=== PATIENT | female | born 1955 | race African-American/Black ===

== ENCOUNTER 2017-09-03 12:13 | Inpatient (IN) | payer OTHER ==
[2017-09-03 12:33] LABS: ADD MAN DIFF? NO
[2017-09-03 12:41] LABS: BASO # 0.1 x10^3/uL (0.0-0.2); BASO % 1 % (0-3); EOS # 0.1 x10^3/uL (0.0-0.7); EOS % 1 % (0-3); LYMPH # 2.7 x10^3/uL (1.0-4.8); LYMPH % 23 % (24-48); MEAN CORPUSCULAR HEMOGLOBIN 29 pg (25-35); MEAN CORPUSCULAR HGB CONC 34 g/dL (31-37); MEAN CORPUSCULAR VOLUME 84 fL (79-100); MONO % 8 % (0-9); NEUT # 7.9 x10^3uL (1.8-7.7); NEUT % 67 % (31-73); PLATELET COUNT 294 x10^3/uL (140-400); RED BLOOD COUNT 4.89 x10^6/uL (3.50-5.40); RED CELL DISTRIBUTION WIDTH 12.7 % (11.5-14.5); WHITE BLOOD COUNT 11.8 x10^3/uL (4.0-11.0)
[2017-09-03 12:53] LABS: ALBUMIN 3.7 g/dL (3.4-5.0); ALBUMIN/GLOBULIN RATIO 0.8 (1.0-1.7); ALK PHOS 203 U/L (46-116); ALT (SGPT) 53 U/L (14-59); ANION GAP 15 (6-14); AST (SGOT) 30 U/L (15-37); BLOOD UREA NITROGEN 14 mg/dL (7-20); BUN/CREATININE RATIO 18 (6-20); CARBON DIOXIDE 24 mmol/L (21-32); CHLORIDE 98 mmol/L (98-107); CREATININE 0.8 mg/dL (0.6-1.0); GFR 87.9; GLUCOSE 161 mg/dL (70-99); LIPASE 102 U/L (73-393); SODIUM 137 mmol/L (136-145); TOTAL BILIRUBIN 2.1 mg/dL (0.2-1.0); TOTAL PROTEIN 8.1 g/dL (6.4-8.2)
[2017-09-03] MEDS: IOHEXOL 300 MG/ML 100ML VIAL. IV (14:00)
[2017-09-03] MEDS ORDERED: CONTRAST GIVEN. MC (14:00)
[2017-09-03] MEDS: ONDANSETRON PF 4 MG/2 ML VIAL. IV (14:03)
[2017-09-03] MEDS: fentaNYL PF VIAL 100 MCG/2 ML VIAL IV ×3 (14:04→16:11)
[2017-09-03] MEDS: IV NORMAL SALINE 1000ML BAG 1,000 ML IV ×2 (14:04→16:45)
[2017-09-03] MEDS ORDERED: LIDOCAINE 2% TOPICAL JELLY 5GM TUBE. TP (16:00)
[2017-09-03 16:35] LABS: BILIRUBIN,URINE NEGATIVE (NEG); CLARITY,URINE CLEAR; COLOR,URINE YELLOW; GLUCOSE,URINE NEGATIVE (NEG); NITRITE,URINE NEGATIVE (NEG); PH,URINE 5.5; PROTEIN,URINE NEGATIVE (NEG-TRACE)
[2017-09-03 16:48] LABS: BACTERIA,URINE FEW /HPF (0-FEW); HYALINE CASTS, URINE MODERATE /HPF; RBC,URINE OCC /HPF (0-2); WBC,URINE OCC /HPF (0-4)
[2017-09-03 16:49] LABS: GRANULAR CASTS,URINE OCCASIONAL /HPF
[2017-09-03] MEDS: POTASSIUM CL 40MEQ IN 0.9%NACL 1,000 ML IV (18:01)
[2017-09-03] MEDS: LIDOCAINE 2% JELLY 6ML IN APPLICATOR. MM (23:29)
[2017-09-04] MEDS ORDERED: PNEUMOC CONJ VACC 23-VALENT 0.5 ML VIAL. VAX IM (09:00)
[2017-09-04] MEDS: POTASSIUM CHLORIDE 40 MEQ in IV 1/2 NORMAL SALINE 1,000 ML IV ×2 (11:36→22:18)
[2017-09-04 15:18] LABS: C DIFF BY PCR Negative (Negative)
[2017-09-04] MEDS: PANTOPRAZOLE IV PUSH 40 MG VIAL. IVP (18:31)
[2017-09-04] MEDS: ENOXAPARIN 40 MG/0.4 ML SYRINGE. SQ ×2 (20:24→20:26)
[2017-09-05] MEDS: POTASSIUM CHLORIDE 40 MEQ in IV 1/2 NORMAL SALINE 1,000 ML IV ×3 (02:50→23:58)
[2017-09-05 04:47] LABS: HEMATOCRIT 32.1 % (36.0-47.0); HEMOGLOBIN 10.9 g/dL (12.0-15.5); MEAN CORPUSCULAR HEMOGLOBIN 29 pg (25-35); MEAN CORPUSCULAR HGB CONC 34 g/dL (31-37); MEAN CORPUSCULAR VOLUME 84 fL (79-100); PLATELET COUNT 195 x10^3/uL (140-400); RED BLOOD COUNT 3.82 x10^6/uL (3.50-5.40); RED CELL DISTRIBUTION WIDTH 12.7 % (11.5-14.5); WHITE BLOOD COUNT 5.8 x10^3/uL (4.0-11.0)
[2017-09-05 05:19] LABS: ALBUMIN 2.7 g/dL (3.4-5.0); ALBUMIN/GLOBULIN RATIO 0.8 (1.0-1.7); ALK PHOS 137 U/L (46-116); ALT (SGPT) 33 U/L (14-59); ANION GAP 10 (6-14); AST (SGOT) 27 U/L (15-37); BLOOD UREA NITROGEN 5 mg/dL (7-20); BUN/CREATININE RATIO 13 (6-20); CALCIUM 9.3 mg/dL (8.5-10.1); CARBON DIOXIDE 24 mmol/L (21-32); CHLORIDE 107 mmol/L (98-107); CREATININE 0.4 mg/dL (0.6-1.0); GFR 195.7; GLUCOSE 82 mg/dL (70-99); LIPASE 73 U/L (73-393); POTASSIUM 3.6 mmol/L (3.5-5.1); SODIUM 141 mmol/L (136-145); TOTAL PROTEIN 6.2 g/dL (6.4-8.2)
[2017-09-05 07:23] LABS: SEDIMENTATION RATE 18 (0-25)
[2017-09-05] MEDS: PANTOPRAZOLE IV PUSH 40 MG VIAL. IVP (08:57)
[2017-09-05] MEDS: IOHEXOL 240 MG/ML 50ML VIAL. PO ×3 (12:00)
[2017-09-05] MEDS ORDERED: CONTRAST GIVEN. MC (12:00)
[2017-09-05] MEDS: ENOXAPARIN 40 MG/0.4 ML SYRINGE. SQ (19:59)
[2017-09-06] MEDS: POTASSIUM CHLORIDE 40 MEQ in IV 1/2 NORMAL SALINE 1,000 ML IV ×2 (05:44→11:30)
[2017-09-06] MEDS: PANTOPRAZOLE IV PUSH 40 MG VIAL. IVP (08:56)
[2017-09-07] MEDS ORDERED: PANTOPRAZOLE 40 MG TABLET.DR. PO (07:30)
== END 2017-09-06 17:15 | disposition home or self-care (01) | DRG 390 ==
LOC: ER 12:13 → 5 SOUTH 16:18
PROC: 0D9670Z Drainage of Stomach with Drainage Device, Via Natural or Artificial Opening (ICD-10-PCS; principal; 2017-09-03)
DX: K56.609 Unspecified intestinal obstruction, unspecified as to partial versus complete obstruction (principal); K76.89 Other specified diseases of liver; E03.9 Hypothyroidism, unspecified; E78.5 Hyperlipidemia, unspecified; F17.210 Nicotine dependence, cigarettes, uncomplicated; F41.9 Anxiety disorder, unspecified; I10 Essential (primary) hypertension; Z80.0 Family history of malignant neoplasm of digestive organs; Z90.710 Acquired absence of both cervix and uterus; Z88.8 Allergy status to other drugs, medicaments and biological substances; Z82.49 Family history of ischemic heart disease and other diseases of the circulatory system; Z83.3 Family history of diabetes mellitus
CPT/HCPCS: 36415; 74018; 74022; 74177; 74250; 80053; 81001; 83690; 85025; 85027; 85651; 87324; 93005; 96361; 96365; 96375; 96376; 99285; 99285-25; 99406; C9113; J1650; J2060; J2405; J3010; J3480; J7030; Q9967

== ENCOUNTER → 2017-12-28 | Outpatient (CLI) | payer OTHER ==
[2017-09-06 15:00] VITALS: BP 115/78
[~2017-12-28] MED LIST: ATOR20TA58 PO; DILT120C80 PO; HYDR12.58 PO; HYDR50TA6 PO; LORA0.5T PO
--- NOTE | 2017-12-28 15:24 | KCIC ---
Bilateral digital screening mammograms: Reason for examination: Routine screening. 50 pound weight loss since prior exams. Comparison is made to previous studies dated 01/29/2016 and 01/25/2015. Interpretation was made with the benefit of CAD. The skin and nipples show no abnormalities. No abnormal axillary lymph nodes are seen. The breast parenchyma shows scattered fibroglandular density. (Breast density: Category B.) There are no dominant masses, suspicious calcifications or architectural distortions. Impression: No evidence of malignancy. Recommend routine screening. BI-RADS Category 1: Negative. "Our facility is accredited by the [employer] Mammography [employer]." This patient's information has been entered into a reminder system for the patient to be notified with the results of her examination and a target date for the next mammogram. Electronically signed by: Rajani Recinos MD (12/28/2017 3:20 PM) [id number]
--- NOTE | 2018-01-06 09:36 | RAD ---
I-131 thyroid therapy for hyperthyroidism, 12/28/2017: HISTORY: Hyperthyroidism The procedure for I-131 thyroid therapy was explained to the patient in lay terms. She understands the need for lifelong clinical follow-up due to the likelihood of subsequent hypothyroidism and the possibility of recurrent hyperthyroidism. She ingested 26.6 mCi of I-131 orally without difficulty. She will follow-up with Dr. [email or web address]. Electronically signed by: Issa Landis MD (01/06/2018 9:32 AM) [facility]
== END | disposition home or self-care (01) ==
LOC: NM 13:03
PROVIDERS: ATTEND Internal Medicine
DX: Z12.31 Encounter for screening mammogram for malignant neoplasm of breast (principal); E05.90 Thyrotoxicosis, unspecified without thyrotoxic crisis or storm
CPT/HCPCS: 77067; 79005; A9528

== ENCOUNTER → 2018-02-17 | Outpatient (CLI) | payer OTHER ==
[2017-09-06 15:00] VITALS: BP 115/78
--- NOTE | 2018-02-17 11:24 | RAD ---
ABDOMEN COMPLETE History: Elevated liver function tests Comparison: None. Findings: Multiple sonographic images of the abdomen are submitted. Hepatic echotexture is within normal limits. Right lobe of the liver measured 12.8 cm longitudinal. Not associated with significant hypervascularity, there is hypoechoic lesion posteriorly of the right lobe of the liver with increased through transmission about 3 x 3.1 x 3.4 cm. Common bile duct is within normal limits at 0.2 cm. Gallbladder is present without intraluminal abnormality, wall thickening, pericholecystic fluid. Right kidney measured 8.7 x 4.5 x 3.3 cm. Left kidney measured 10.3 x 5.5 x 5.5 cm. There is no hydronephrosis of either kidney. Pancreas is poorly visualized due to bowel gas. Impression: 1. There is a right hepatic cyst. 2. Right kidney is somewhat small in size. Electronically signed by: Kamron Alfonso MD (02/17/2018 11:20 AM) [id number]
== END | disposition home or self-care (01) ==
LOC: US 06:44
DX: K76.89 Other specified diseases of liver (principal); N27.0 Small kidney, unilateral; R79.89 Other specified abnormal findings of blood chemistry
CPT/HCPCS: 76700

== ENCOUNTER → 2018-12-29 | Outpatient (CLI) | payer OTHER ==
[2017-09-06 15:00] VITALS: BP 115/78
[~2018-12-29] MED LIST changes: -DILT120C80 PO; +DILT120C99 PO
--- NOTE | 2018-12-29 11:06 | KCIC ---
Bilateral digital screening mammograms: Reason for examination: Routine screening. Comparison is made to previous studies dated 12/28/2017 and 01/29/2016. Interpretation was made with the benefit of CAD. The skin and nipples show no abnormalities. No abnormal axillary lymph nodes are seen. The breast parenchyma shows scattered fibroglandular density. (Breast density: Category B.) There are no dominant masses, suspicious calcifications or architectural distortions. A few punctate calcifications are again seen. Impression: No evidence of malignancy. Recommend routine screening. BI-RADS Category 2: Benign. "Our facility is accredited by the [employer] Mammography [employer]." This patient's information has been entered into a reminder system for the patient to be notified with the results of her examination and a target date for the next mammogram. Electronically signed by: Rajani Recinos MD (12/29/2018 11:03 AM) [id number]
== END | disposition home or self-care (01) ==
LOC: KCIC MAMMO 09:45
PROVIDERS: ATTEND Nurse Practitioner Family
DX: Z12.31 Encounter for screening mammogram for malignant neoplasm of breast (principal); N64.89 Other specified disorders of breast
CPT/HCPCS: 77067

== ENCOUNTER → 2019-03-16 | Outpatient (CLI) | payer OTHER ==
[2017-09-06 15:00] VITALS: BP 115/78
--- NOTE | 2019-03-16 13:31 | KCIC ---
Right upper quadrant abdominal ultrasound compared to prior abdominal ultrasound dated 02/17/2018 for follow-up on hepatic cyst. Technique an findings: Real-time grayscale and color Doppler evaluation of the abdominal organs of the right upper quadrant is performed. This examination is significantly limited by the presence of a large amount of overlying bowel gas which obscures visualization of the IVC, pancreas, portions of the liver, gallbladder, and the right kidney. Visualized portions the liver are grossly unremarkable. The liver measures 15 cm. There is redemonstration of a simple appearing cyst within the right lobe of the liver, with no suspicious elements and no significant interval change from the recent ultrasound study or the contrast enhanced CT scan dated September 03, 2017. Portal vein is patent with hepatopedal flow. Visualized portions of the gallbladder grossly unremarkable, with no pericholecystic fluid, gallbladder wall thickening, or shadowing stones or sludge identified. The common bile duct measures 4 mm in thickness. The right kidney measures 10.1 x 3.9 x 4.7 cm and is free of any hydronephrosis. Pancreas is entirely obscured as is the IVC and aorta. IMPRESSION: 1. Stable appearing 3.8 cm simple right hepatic cyst. There are no suspicious features, and no further follow-up of this stable benign abnormality is required. 2. Limited evaluation of the abdominal organs due to a large amount of overlying bowel gas. Electronically signed by: Davin Tejeda MD (03/16/2019 1:28 PM) [facility]
== END | disposition home or self-care (01) ==
LOC: KCIC US 07:55
PROVIDERS: ATTEND Internal Medicine
DX: K76.89 Other specified diseases of liver (principal)
CPT/HCPCS: 76705